=== PATIENT | female | born 1995 | race Asian ===

== ENCOUNTER → 2021-06-19 | Outpatient (CLI) | payer OTHER ==
--- NOTE | 2021-06-19 12:36 | Diagnostic Imaging Report ---
INDICATION: survey. TECHNIQUE: Multiple real-time grayscale images were obtained over the gravid uterus. COMPARISON: None FINDINGS: There is a single live fetus in a cephalic presentation. heart rate was recorded at 149 bpm. Placenta is posterior. Amniotic fluid volume is normal. Cervical length is 4.1 cm. survey shows kidneys, bladder and stomach to be unremarkable. brain s unremarkable. There is a four-chamber heart. There is a three-vessel cord with normal insertion. spine is unremarkable. Biometrical measurements are as follows: Biparietal 5.03 cm, age 21 weeks 2 days. Head circumference 18.50 cm, age 20 weeks 6 days. Abdominal circumference 15.98 cm, age 21 weeks 1 days. Femur length 3.38 cm, age 20 weeks 5 days. Sonographic estimate age: 21 weeks 0 days. Sonographic estimated date of delivery: 10/30/21. Estimated Weight: 384 gm (+/- 56 gm). LMP percentile: 85%. heart rate: 149 beats per minute. number: 1 of 1. IMPRESSION: Single live IUP 21 weeks 0 days gestational age. Estimated date of confinement sonographically is 10/30/2021. No complicating features are detected. Dictated by: Dictated on workstation # [id number]
== END ==
LOC: RAD 10:00
PROVIDERS: ATTEND Nurse Practitioner Women's Health
DX: Z34.02 Encounter for supervision of normal first pregnancy, second trimester (principal); Z3A.21 21 weeks gestation of pregnancy
CPT/HCPCS: 76805

== ENCOUNTER 2021-10-31 06:50 | Inpatient (IN) | payer OTHER ==
[~2021-10-31] VITALS: Ht 157.5 cm; Wt 75.0 kg
[2021-10-31] VITALS (28 sets, daily range): BP systolic 87–165; BP diastolic 52–109
[2021-10-31] MEDS: D5 LR IV SOLUTION 1,000 ML IV SCH ×2 (06:55→18:43)
[2021-10-31] MEDS ORDERED: D5 LR IV SOLUTION 1,000 ML IV ONE (07:10)
[2021-10-31 07:14] LABS: BASOPHILS # (AUTO) 0.1 10^3/uL (0.0-0.1); BASOPHILS % (AUTO) 1 % (0-10); EOSINOPHILS # (AUTO) 0.4 10^3/uL (0.0-0.3); EOSINOPHILS % (AUTO) 5 % (0-10); HEMATOCRIT 39 % (35-52); HEMOGLOBIN 12.1 g/dL (11.5-16.0); LYMPHOCYTES % (AUTO) 24 % (12-44); MEAN CORPUSCULAR HEMOGLOBIN 25 pg (25-34); MEAN CORPUSCULAR HGB CONC 31 g/dL (32-36); MEAN CORPUSCULAR VOLUME 79 fL (80-99); MEAN PLATELET VOLUME 10.4 fL (9.0-12.2); MONOCYTES # (AUTO) 0.6 10^3/uL (0.0-1.0); MONOCYTES % (AUTO) 7 % (0-12); NEUTROPHILS # (AUTO) 5.1 10^3/uL (1.8-7.8); NEUTROPHILS % (AUTO) 63 % (42-75); PLATELET COUNT 296 10^3/uL (130-400); WHITE BLOOD COUNT 8.1 10^3/uL (4.3-11.0)
[2021-10-31] MEDS ORDERED: LACTATED RINGERS 1,000 ML IV SCH (07:15)
[2021-10-31] MEDS ORDERED: fentaNYL 2 mcg/ml BUPIVA 0.125 100 ML ONE (07:16)
[2021-10-31] MEDS ORDERED: OXYTOCIN PRE-MIX DRIP 1,000 ML IV ONE (07:16)
[2021-10-31] MEDS ORDERED: LIDOCAINE/EPI 2% 1:200,00 (XYLOCAINE) 10 ML VIAL ONE (07:17)
[2021-10-31] MEDS ORDERED: fentaNYL INJ 100 MCG/2 ML AMP ONE (07:31)
--- NOTE | 2021-10-31 07:33 | History & Physical-OB ---
OB - Chief Complaint & HPI Date/Time Date of Admission: Date of Admission: October 31, 2021 at 06:55 Date seen by a Provider: October 31, 2021 Time Seen by a Provider: 07:15 Chief Complaint/History OB-Reason for Admission/Chief: Onset of Labor Hx : 2 Hx Para: 1 Expected Date of Delivery: November 05, 2021 Gestational Age in Weeks: 39 Gestational Age in Days: 2 Admission Nurse Assessment Rev: Yes History of Labs B pos Antibody neg RI RPR NR HBsAg NR HIV NR GC neg GBS neg Allergies and Home Medications Allergies Uncoded Allergies: NKDA (Allergy, Unknown, 10/31/21) Patient Home Medication List Home Medication List Reviewed: Yes OB - History Hx of Present Care: Yes Ultrasounds: Normal mid trimester US Obstetrical Complications: None Medical Complications: None Patient Past Medical History n/a OB - Admission Exam Physical Exam HEENT: NCAT Heart: Rhythm Normal Lungs: Clear Abdomen: Gravid Extremities: Normal Reflexes: Normal Cervical Dilatation: 8cm Effacement: 100% Station: -1 Membranes: Ruptured Amniotic Fluid: Clear Heart Rate: 130's Accelerations: Accelerations Present Decelerations: Early Decelerations Short Term Variability: Present Detention Variability: Average (6-25) Contractions on Admission: 6-10 Minutes Apart Intensity: Mild Labs Laboratory Tests Test 10/31/21 06:38 10/31/21 07:11 Range/Units Membranes Rupture POSITIVE White Blood Count 8.1 4.3-11.0 10^3/uL Red Blood Count 4.92 3.80-5.11 10^6/uL Hemoglobin 12.1 11.5-16.0 g/dL Hematocrit 39 35-52 % Mean Corpuscular Volume 79 L 80-99 fL Mean Corpuscular Hemoglobin 25 25-34 pg Mean Corpuscular Hemoglobin Concent 31 L 32-36 g/dL Red Cell Distribution Width 14.4 10.0-14.5 % Platelet Count 296 130-400 10^3/uL Mean Platelet Volume 10.4 9.0-12.2 fL Immature Granulocyte % (Auto) 0 % Neutrophils (%) (Auto) 63 42-75 % Lymphocytes (%) (Auto) 24 12-44 % Monocytes (%) (Auto) 7 0-12 % Eosinophils (%) (Auto) 5 0-10 % Basophils (%) (Auto) 1 0-10 % Neutrophils # (Auto) 5.1 1.8-7.8 10^3/uL Lymphocytes # (Auto) 2.0 1.0-4.0 10^3/uL Monocytes # (Auto) 0.6 0.0-1.0 10^3/uL Eosinophils # (Auto) 0.4 H 0.0-0.3 10^3/uL Basophils # (Auto) 0.1 0.0-0.1 10^3/uL Immature Granulocyte # (Auto) 0.0 0.0-0.1 10^3/uL OB - Assessment/Plan/Diagnosis Assessment Assessment: active labor Admission Dx 26 yo @ 39 weeks Active labor GBS neg Admission Status: Inpatient Order (span 2 midnights) Reason for Inpatient Admission: Active labor at 39 weeks Plan Plan: Expectant Management DANI HERNÁNDEZ DO October 31, 2021 07:33
[2021-10-31] MEDS ORDERED: TETANUS,DIPTH,PERTUSS P/F (BOOSTRIX) 0.5 ML VIAL IM ONE (07:45)
[2021-10-31] MEDS ORDERED: BENZOCAINE/MENTHOL (DERMOPLAST) 56 ML CAN TP PRN (07:45)
[2021-10-31] MEDS ORDERED: HYDROcodone/APAP 5 MG/325 MG (LORTAB) TAB PO PRN (07:45)
[2021-10-31] MEDS ORDERED: DIBUCAINE 1% OINTMENT 30 GM TUBE TOP PRN (07:45)
[2021-10-31] MEDS ORDERED: MEASLES,MUMPS,RUBELLA 1 EA INJ SQ ONE (07:45)
[2021-10-31] MEDS ORDERED: WITCH HAZEL(TUCKS) 40 EA JAR TOP PRN (07:45)
[2021-10-31] MEDS ORDERED: NALOXONE 0.4 MG/ML 1 ML (NARCAN) VIAL IV PRN ×2 (07:45→08:15)
[2021-10-31] MEDS ORDERED: LIDOCAINE PF 2% 5 ML (XYLOCAINE) VIAL ONE (07:54)
[2021-10-31] MEDS ORDERED: BUPIVACAINE 0.5% 30 ML (SENSORCAINE) VIAL ONE (07:54)
[2021-10-31] MEDS ORDERED: BUPIVACAINE 0.25% 10 ML (SENSORCAINE) VIAL ONE (07:54)
[2021-10-31] MEDS ORDERED: ONDANSETRON 4 MG/2 ML (SDV) Z0FRAN IV PRN (08:15)
[2021-10-31] MEDS ORDERED: EPIDURAL (fentaNYL 2 MCG/ML BUPIVA 0.125%)100 ML BAG EPI PRN (08:15)
[2021-10-31] MEDS ORDERED: fentaNYL INJ 100 MCG/2 ML AMP INJ ONE (08:15)
[2021-10-31] MEDS ORDERED: LACTATED RINGERS 1,000 ML IV ONE ×2 (08:15)
[2021-10-31] MEDS: OXYTOCIN PRE-MIX DRIP 500 ML IV SCH ×2 (09:19→09:20)
[2021-10-31] MEDS: DOCUSATE SODIUM 100 MG (COLACE) CAP PO SCH ×2 (12:01→20:52)
[2021-10-31] MEDS: IBUPROFEN 600 MG (MOTRIN) TAB PO SCH ×3 (12:01→23:50)
[2021-10-31] MEDS: FERROUS SULF 325 MG (IRON) TAB PO SCH (12:01)
--- NOTE | 2021-10-31 12:39 | OB Labor & Delivery Record ---
L&D History Date of Service Date of Service: October 31, 2021 History Expected Date of Delivery: November 05, 2021 Gestational Age in Weeks: 39 Hx : 2 Hx Para: 1 Complications Events: Routine care Operative Indications (Cesarea: N/A-Vaginal Delivery Intrapartal Events: None L&D Stage1 Stage One Onset of Labor - Date: October 31, 2021 Monitors and Tracing Monitor Mode: External Heart Rate: 125 Station: -1 Cartoon Artist Variability: Average (6-10) Short Term Variability: Present Presentation: Vertex Vital Signs VS - Last 72 Hours, by Label 10/31/21 10/31/21 10/31/21 10/31/21 07:15 07:30 07:30 07:36 Temp 36.6 36.6 Pulse 75 85 75 77 Resp 18 18 18 18 B/P (MAP) 107/73 (84) 118/83 (95) Pulse Ox 95 100 95 100 O2 Delivery Room Air Room Air Room Air Room Air 10/31/21 10/31/21 10/31/21 10/31/21 07:41 07:45 07:49 07:52 Pulse 73 68 81 Resp 18 18 18 B/P (MAP) 107/77 (87) 101/66 (78) 101/68 (79) Pulse Ox 99 99 99 O2 Delivery Room Air Room Air Room Air Room Air 10/31/21 10/31/21 10/31/21 10/31/21 07:55 07:58 08:00 08:03 Pulse 80 70 73 68 Resp 18 18 18 18 B/P (MAP) 103/64 (77) 99/73 (82) 101/75 (84) 101/74 (83) Pulse Ox 98 98 99 99 O2 Delivery Room Air Room Air Room Air Room Air 10/31/21 10/31/21 10/31/21 10/31/21 08:06 08:10 08:13 08:15 Pulse 65 78 79 Resp 18 18 18 B/P (MAP) 109/75 (86) 95/72 (80) 108/77 (87) Pulse Ox 99 100 100 O2 Delivery Room Air Room Air Room Air Room Air 10/31/21 10/31/21 10/31/21 10/31/21 08:20 08:23 08:27 08:30 Pulse 86 111 114 122 Resp 18 18 18 18 B/P (MAP) 98/71 (80) 108/65 (79) 165/109 (127) 92/60 (71) O2 Delivery Room Air Room Air Room Air Non Rebreather O2 Flow Rate 15.00 10/31/21 10/31/21 08:45 12:00 Temp 36.3 Pulse 66 Resp 18 B/P (MAP) 102/60 (74) Pulse Ox 98 O2 Delivery Non Rebreather Room Air O2 Flow Rate 15.00 Rupture of Membranes Spontaneous Ruture of Membrane: Yes Amniotic Membrane Rupture Time: 0430 Amniotic Membrane Fluid Desc.: Clear Vaginal Bleeding Description: Normal Show Induction/Anesthesia Epidural Cath Placement - Time: 0740 Progress/Notes Patient presented in active labor 8 cm dialated. Shortly after epidural placement she was complete and + 1 station and encouraged to push with pressure. L&D Stage2 Stage Two Stage II Date: October 31, 2021 Monitors and Tracing Monitor Mode: External Heart Rate: 100 Monitor Accelerations: None Monitor Decelerations: Variable Retirement Variability: Average (6-10) Short Term Variability: Present Position: Right Occiput Anterior Signs of Distress by FHT Signs of Distress Drop in baseline and variable decels noted with contractions and pushing Cord Descript/Complications Cord Vessel Description: 3 Vessels Complications tight nuchal clamped and cut at perineum Delivery Type Infant Delivery Method: Spontaneous Vaginal Anterior Shoulder: Left Episiotomy/Perineal Laceration Laceraction(s)/Extensions: Yes Episiotomy Description: Perineal Extension/lac, 2nd degree Degree (describe repair) laceration repaired using 3-0 and 2-0 rapide vicryl in usual fashion. Condition of Delivery 1 minute Comment: 8 5 minute Comment: 9 Notes Live male infant weight 8lbs 7 oz Condition of Infant Condition of Infant: Living Exam: No Observed Abnormalities Resuscitation Resuscitation: N/A - Spontaneous Resp L&D Stage3 Stage Three Stage III Date: October 31, 2021 Pictocin Pitocin Administration Comment: 30 mu wide open after delivery of placetna Placenta Delivery Placenta Delivery: Spontaneous Delivery Summary Summary Estimated blood loss (mL): 250 Attending at delivery: Dani Hernández DO Condition of Delivery Examined: Cervix Examined, Uterus Explored Post Hemorrhage: No Condition of Mother stable Condition of (s) stable DANI HERNÁNDEZ DO October 31, 2021 12:39 pm
--- NOTE | 2021-10-31 12:40 | Discharge Inst-Women's Service ---
Discharge Inst-Women's Serv Depart Medication/Instructions New, Converted or Re-Newed RX: Transmitted to Pharmacy Final Diagnosis PPD 1 NVD Problems Reviewed?: Yes Consults/Follow Up Additional Follow Up: Yes Orders/Referrals Dr. Hernández in 6 weeks Activity Activity: Activity as Tolerated Driving Instructions: No Driving for 1 Week NO SMOKING: NO SMOKING Nothing Inside Vagina: No Douching, No [place], No Tampons Diet Discharge Diet: No Restrictions Symptoms to Report to : Bleeding Excessive, Pain Increased, Fever Over 101 Degrees F, Vaginal Bleeding Increase, Questions/Concerns For Any Problems or Questions: Contact Your Physician DANI HERNÁNDEZ DO October 31, 2021 12:40 pm
[2021-10-31] MEDS ORDERED: ACHD5005 PO (12:46)
[2021-10-31] MEDS ORDERED: DIBU30OI TOP (12:46)
[2021-10-31] MEDS ORDERED: BENZ78AE5 TP (12:46)
[2021-10-31] MEDS ORDERED: IBUP-844 PO (12:46)
[2021-10-31] MEDS ORDERED: FERR325T24 PO (12:46)
[2021-10-31] MEDS ORDERED: DOCU100C37 PO (12:46)
[2021-10-31] MEDS ORDERED: CATHETER FLUSH 10 ML SYR IV SCH ×2 (14:00)
[2021-11-01 03:23] VITALS: BP 94/55
[2021-11-01] MEDS: IBUPROFEN 600 MG (MOTRIN) TAB PO SCH ×2 (06:14→11:58)
[2021-11-01 06:34] LABS: BASOPHILS % (AUTO) 0 % (0-10); EOSINOPHILS # (AUTO) 0.3 10^3/uL (0.0-0.3); EOSINOPHILS % (AUTO) 3 % (0-10); HEMATOCRIT 31 % (35-52); HEMOGLOBIN 9.5 g/dL (11.5-16.0); LYMPHOCYTES # (AUTO) 1.7 10^3/uL (1.0-4.0); LYMPHOCYTES % (AUTO) 18 % (12-44); MEAN CORPUSCULAR HEMOGLOBIN 24 pg (25-34); MEAN CORPUSCULAR HGB CONC 31 g/dL (32-36); MEAN CORPUSCULAR VOLUME 79 fL (80-99); MEAN PLATELET VOLUME 10.2 fL (9.0-12.2); MONOCYTES # (AUTO) 0.6 10^3/uL (0.0-1.0); MONOCYTES % (AUTO) 6 % (0-12); NEUTROPHILS # (AUTO) 6.8 10^3/uL (1.8-7.8); NEUTROPHILS % (AUTO) 73 % (42-75); PLATELET COUNT 213 10^3/uL (130-400); WHITE BLOOD COUNT 9.4 10^3/uL (4.3-11.0)
[2021-11-01] MEDS ORDERED: PRENATAL VITAMIN 1 EA TAB PO SCH (07:00)
--- NOTE | 2021-11-01 07:26 | Postpartum Progress Note ---
Note Note Day # [1] Subjective: Patient is without complaints. Ambulating, voiding. Tolerating a regular diet without nausea or vomiting. Normal lochia. Pain is well controlled with oral pain medications. [breast] feeding.no c/o Objective: VSS, AF Gen: A&O x 3, NAD Chest: nonlabored Abd: FF, NT Ext: NT Physical Exam: General - Alert and oriented, no apparent distress Abdomen - Soft, appropriately tender to palpation, non-distended, fundus firm at umbilicus Extremities - no edema, negative Mary's bilaterally Assessment: [s/p ] post- day # [1], Recovering well, hemodynamically stable Plan: Routine care. Encourage breast feeding. Encourage ambulation. Ferrous sulfate supplementation. Plan for discharge [today] Vitals - Labs Vital Signs - I&O Vital Signs Date Time Temp Pulse Resp B/P (MAP) Pulse Ox O2 Delivery O2 Flow Rate FiO2 11/01/21 03:23 36.1 70 18 94/55 (68) 97 Room Air 10/31/21 23:53 36.0 66 18 87/52 (64) 97 Room Air 10/31/21 20:39 36.5 85 18 91/55 (67) 98 Room Air 10/31/21 16:10 36.5 68 18 93/54 (67) 97 Room Air 10/31/21 12:00 36.3 66 18 102/60 (74) 98 Room Air 10/31/21 10:33 73 18 97/64 (75) Room Air 10/31/21 10:18 71 18 90/60 (70) Room Air 10/31/21 10:03 36.4 72 18 89/61 (70) Room Air 10/31/21 09:48 68 18 90/61 (71) Room Air 10/31/21 09:33 36.5 73 18 93/55 (68) Room Air 10/31/21 09:19 75 18 98/61 (73) Room Air 10/31/21 08:51 36.9 88 18 99/58 (72) Room Air 10/31/21 08:45 Non Rebreather 15.00 10/31/21 08:30 122 18 92/60 (71) Non Rebreather 15.00 10/31/21 08:27 114 18 165/109 (127) Room Air 10/31/21 08:23 111 18 108/65 (79) Room Air 10/31/21 08:20 86 18 98/71 (80) Room Air 10/31/21 08:15 Room Air 10/31/21 08:13 79 18 108/77 (87) 100 Room Air 10/31/21 08:10 78 18 95/72 (80) 100 Room Air 10/31/21 08:06 65 18 109/75 (86) 99 Room Air 10/31/21 08:03 68 18 101/74 (83) 99 Room Air 10/31/21 08:00 73 18 101/75 (84) 99 Room Air 10/31/21 07:58 70 18 99/73 (82) 98 Room Air 10/31/21 07:55 80 18 103/64 (77) 98 Room Air 10/31/21 07:52 81 18 101/68 (79) 99 Room Air 10/31/21 07:49 68 18 101/66 (78) 99 Room Air 10/31/21 07:45 Room Air 10/31/21 07:41 73 18 107/77 (87) 99 Room Air 10/31/21 07:36 77 18 118/83 (95) 100 Room Air 10/31/21 07:30 36.6 75 18 95 Room Air 10/31/21 07:30 85 18 100 Room Air I & O 11/01/21 07:00 Intake Total 2800 ml Balance 2800 ml Labs Laboratory Tests 11/01/21 06:20: White Blood Count 9.4, Red Blood Count 3.91, Hemoglobin 9.5#L, Hematocrit 31L, Mean Corpuscular Volume 79L, Mean Corpuscular Hemoglobin 24L, Mean Corpuscular Hemoglobin Concent 31L, Red Cell Distribution Width 14.5, Platelet Count 213, Mean Platelet Volume 10.2, Immature Granulocyte % (Auto) 1, Neutrophils (%) (Auto) 73, Lymphocytes (%) (Auto) 18, Monocytes (%) (Auto) 6, Eosinophils (%) (Auto) 3, Basophils (%) (Auto) 0, Neutrophils # (Auto) 6.8, Lymphocytes # (Auto) 1.7, Monocytes # (Auto) 0.6, Eosinophils # (Auto) 0.3, Basophils # (Auto) 0.0, Immature Granulocyte # (Auto) 0.1 BETHANY APPLE MD November 01, 2021 07:26
[2021-11-01 09:40] VITALS: BP 114/65
[2021-11-01] MEDS: FERROUS SULF 325 MG (IRON) TAB PO SCH (09:42)
[2021-11-01] MEDS: DOCUSATE SODIUM 100 MG (COLACE) CAP PO SCH (09:42)
--- NOTE | 2021-11-01 10:37 | Anesthesia-Regional Post-Op ---
Regional Patient Condition Mental Status: Alert, Oriented x3 Circulation: Same as Pre-Op Headache: Absent Sensation: Full Recovery Motor Block: Absent Post Op Complications Complications None Follow Up Care/Instructions Patient Instructions None needed. Anesthesia/Patient Condition Patient is doing well, no complaints, stable vital signs, no apparent adverse anesthesia problems. No complications reported per nursing. NIKKI PASCUAL CRNA November 01, 2021 10:37
[2021-11-01 14:07] VITALS: BP 114/65
== END 2021-11-01 14:30 | disposition home or self-care (01) | DRG 807 ==
LOC: WSo 06:50 → LDRP 06:52 → WSo 06:55 → LDRP 10:45
PROVIDERS: ADMIT Obstetrics & Gynecology; ATTEND Obstetrics & Gynecology
PROC: 10E0XZZ Delivery of Products of Conception, External Approach (ICD-10-PCS; principal; 2021-10-31)
PROC: 0KQM0ZZ Repair Perineum Muscle, Open Approach (ICD-10-PCS; 2021-10-31)
DX: O70.1 Second degree perineal laceration during delivery (principal); Z37.0 Single live birth; Z3A.39 39 weeks gestation of pregnancy
CPT/HCPCS: 36415; 84112; 85025; 86850; 86900; 86901; 99212